=== PATIENT | male | born 1975 | race Hispanic/Latino ===

== ENCOUNTER 2017-04-22 23:46 | Emergency (ER) | payer OTHER, SELFPAY ==
[2017-04-23 00:24] LABS: #Eosinphils 0.1 thou/uL (0.0-0.7); #Lymphocytes 1.5 thou/uL (1.20-3.40); #Monocytes 0.8 thou/uL (0.11-0.59); %Basophils 0.3 % (0.0-1.0); %Eosinophils 0.7 % (0.0-10.0); %Monocytes 7.7 % (0.0-10.0); %Neutrophils 77.3 % (42.0-75.0); Hemoglobin 15.9 g/dL (14.0-18.0); Mean Corpuscular HGB CONC 32.7 g/dL (32.0-36.0); Mean Corpuscular Hemoglobin 32.6 pg (27.0-31.0); Mean Corpuscular Volume 99.8 fl (80.0-94.0); Mean Platelet Volume 6.7 fL (7.4-10.4); Platelet Count 379 thou/uL (130-400); RBC Distribution Width 12.6 % (11.5-14.5); Red Blood Cell (RBC) Count 4.88 mill/uL (4.70-6.10); White Blood Cell (WBC) Count 10.4 thou/uL (4.8-10.8)
[2017-04-23 00:45] LABS: ALT (SGPT) 14 U/L (8-55); AST (SGOT) 22 U/L (5-34); Acetaminophen Less than 6.0 mcg/mL (10.0-30.0); Albumin 4.4 g/dL (3.5-5.0); Alcohol Less than 10 mg/dL (Less than 10); Alkaline Phosphatase 84 U/L (40-150); Anion Gap 11 mmol/L (10-20); BUN (Urea Nitrogen) 12 mg/dL (8.9-20.6); Bilirubin, Total 1.2 mg/dL (0.2-1.2); Calc. Creatinine Clearance 0 mL/min (70-130); Calcium 9.7 mg/dL (7.8-10.44); Carbon Dioxide 29 mmol/L (22-29); Chloride 102 mmol/L (98-107); Estimated GFR-MDRD Greater than 90; Globulin 3.8 g/dL (2.4-3.5); Glucose 113 mg/dL (70-105); Potassium 4.2 mmol/L (3.5-5.1); Protein, Total 8.2 g/dL (6.0-8.3); Salicylate Less than 8.0 mg/dL (15.0-30.0); Sodium 138 mmol/L (136-145)
[2017-04-23 01:09] LABS: Bilirubin Negative (Negative); Blood, Urine Small (Negative); Clarity CLOUDY (Clear); Glucose, Urine (Dipstick) Negative (Negative); Leukocyte Moderate (Negative); Nitrite Negative (Negative); Protein, Urine (Dipstick) 30 mg/dL (Neg-Trace); Specific Gravity, Urine 1.019 (1.002-1.036); pH, Urine 7.5 (5.0-9.0)
[2017-04-23 01:11] LABS: Bacteria/HPF 4+ HPF (None Seen); RBC/HPF 21-50 HPF (0-3); Squamous Epithelial None Seen HPF (0-3)
[2017-04-23 01:19] LABS: Amphetamine Detected (NotDetected); Barbiturates Screen Not Detected (NotDetected); Benzodiazepine Screen Not Detected (NotDetected); Cocaine Metabolite Screen Detected (NotDetected); Medtox Control Line Valid? VALID (VALID); Medtox Reader # READER 4; Methadone Not Detected (NotDetected); Methamphetamine Detected (NotDetected); Opiate Screen Not Detected (NotDetected); Oxycodone Screen Not Detected (NotDetected); Phencyclidine (PCP) Not Detected (NotDetected); THC/Cannabinoid Screen Not Detected (NotDetected); Tricyclic Screen Not Detected (NotDetected)
[2017-04-23 01:24] LABS: Hyaline Casts/LPF NONE SEEN LPF (0-3 Hyaline)
[2017-04-23] MEDS ORDERED: Metoclopramide HCl 10 MG/2 ML VIAL ONE (03:09)
[2017-04-23] MEDS ORDERED: Sulfameth/Trimethoprim DS 800-160mg TAB ONE (04:03)
[2017-04-23] MEDS ORDERED: Lidocaine 1% PF 5 ML VIAL ONE (04:03)
[2017-04-23] MEDS ORDERED: Azithromycin 250 MG TAB ONE (04:03)
[2017-04-23] MEDS ORDERED: cefTRIAXone\\ROCEPHIN 250 MG VIAL ONE (04:03)
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
[2017-04-23] MEDS ORDERED: Benzonatate 100 MG CAP PO SCH (19:30)
[2017-04-23] MEDS ORDERED: Acetaminophen 325 MG TAB ONE (19:37)
[2017-04-24 01:40] LABS: Chlamydia by PCR Not Detected (NotDetected); GC by PCR Not Detected (NotDetected)
[2017-04-24] MEDS ORDERED: Sulfameth/Trimethoprim DS 800-160mg TAB ONE (10:13)
== END 2017-04-24 17:56 ==
LOC: ERS 23:46
DX: R45.851 Suicidal ideations (principal); N39.0 Urinary tract infection, site not specified; F20.9 Schizophrenia, unspecified; F17.210 Nicotine dependence, cigarettes, uncomplicated; Z79.899 Other long term (current) drug therapy
CPT/HCPCS: 36415; 70450; 80053; 80306; 80307; 81003; 81015; 82550; 84443; 85025; 87077; 87086; 87186; 87491; 87591; 96361; 96372; 96374; J0696; J2001; J2765

== ENCOUNTER 2018-11-27 17:12 | Emergency (ER) | payer SELFPAY ==
[2018-11-27] MEDS ORDERED: Triple Antibiotic Oint 1 GM Packet ONE (20:08)
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
== END 2018-11-27 21:20 | disposition home or self-care (01) ==
LOC: ERS 17:12
DX: S01.511A Laceration without foreign body of lip, initial encounter (principal); F20.9 Schizophrenia, unspecified; F22 Delusional disorders; F17.210 Nicotine dependence, cigarettes, uncomplicated; Y04.0XXA Assault by unarmed brawl or fight, initial encounter
CPT/HCPCS: 99282

== ENCOUNTER 2018-12-04 08:49 | Emergency (ER) | payer SELFPAY | END 2018-12-04 09:36 | disposition home or self-care (01) | LOC: ERS 08:49 | DX: S01.511D Laceration without foreign body of lip, subsequent encounter (principal); F20.9 Schizophrenia, unspecified; F22 Delusional disorders; F17.210 Nicotine dependence, cigarettes, uncomplicated ==